=== PATIENT | female | born 1940 | race Caucasian/White ===

== ENCOUNTER 2017-08-03 17:10 | Inpatient (IN) ==
[2017-08-03] MEDS ORDERED: LABETALOL 20 MG/4 ML (5 MG/1 ML) SYRINGE IVP ONE (17:24)
[2017-08-03] MEDS ORDERED: NORMAL SALINE 10 ML SYRINGE FLUSH IVP PRN (17:24)
--- NOTE | 2017-08-03 17:24 | PDOC ---
General Adult HPI - General Chief Complaint: General Medical Stated Complaint: hypertension Date Seen by Provider: 08/03/17 Time Seen by Provider: 17:23 Source: POSITIVE: Patient - History of Present Illness Initial Comment: Judy is a 76 year old woman coming in today with concerns for high blood pressure. She states she feels heart palpitations and anxiety, which she normally feels when her blood pressure is high. She denies chest pain, headache , vision changes, lightheadedness, or syncope. She denies fever or urinary symptoms. She has a known history of high blood pressure. She was recently admitted to this hospital for pneumonia, she was discharged on additional blood pressure medications. She states she is still having a cough, and she already completed all her antibiotics for the pneumonia. Have you received a tetanus shot in the past 10 years?: No - Patient Home Medications Home Medications: Home Medications Metoprolol Succinate [Toprol XL] 25 mg PO DAILY 07/22/15 Aspirin 325 mg PO DAILY 03/26/16 Calcium Carbonate [Calcium] 600 mg PO DAILY 03/26/16 Fluticasone Prop HFA Inhaler [Flovent HFA Inhaler] 1 puff INH DAILY PRN Irbesartan 150 mg PO DAILY 03/26/16 Pirbuterol Acetate [MAXAIR AUTOHALER] 1 puff INH DAILY PRN 03/26/16 Triamterene/Hydrochlorothiazid [Triamterene-Hctz 75-50 mg Tab] 1 ea PO DAILY - Patient Allergies Allergies/Adverse Reactions: Allergies 3 Allergy/AdvReac Type Severity Reaction Status Date / Time No Known Allergies Allergy Verified 08/03/17 17:57 Past Medical History - heen HEENT History: Denies History, Dentures/Partials Cardiovascular History: Hypertension, Arrhythmia Additional Cardiovasular History: [id number] PATTERN Respiratory History: Asthma Gastrointestinal History: Denies History Genitourinary History: Denies History Endocrine History: Denies History Musculoskeletal History: Arthritis Neurological History: Denies History Blood Disorders: Denies History Psychiatric History: Denies History History of Sexually Transmitted Diseases: No Cancer History: Breast Cancer Treatment / Date(s) of Treatment: 2008 History of MDRO: No History of Other Communicable Diseases: No Alcohol Use: Rarely In the Past 12 Months, Have Used or Abuse Any Substance: None Previous Surgical History: Yes Type / Date of Surgery: HYSTERECTOMY, 09 B MASTECTOMY, HEART ABLATION. brow lift Anesthesia Reactions: No Malignant Hyperthermia: No Significant Family History: No pertinent family hx, Asthma, Cancer, COPD, Hypertension Past Medical History Reviewed: Reviewed - No Changes ROS - Limitations ROS Limitations: No Limitations Constitution: REPORTS: Denies Symptoms Cardiovascular: REPORTS: Heart Palpitations Respiratory: REPORTS: Cough Productive Neurological: REPORTS: Denies Neuro Symptoms Gastrointestinal: REPORTS: Denies GI Symptoms Endocrine: REPORTS: Denies Symptoms Musculoskeletal: REPORTS: Denies MS Symptoms Genitourinary: REPORTS: Denies Symptoms Eyes: REPORTS: Denies Symptoms ENT: REPORTS: Denies Symptoms Skin: REPORTS: Denies Skin Symptoms Lympathic: REPORTS: Denies Lympathic Symptoms Immunologic: POSITIVE: Denies Symptoms Psychiatric: POSITIVE: Denies Psych Symptoms General Adult Exam - General Appearance General Appearance: POSITIVE: Alert, Cooperative, Anxious - HEENT HEENT: POSITIVE: Head Inspection Nml, Eyes Inspection Nml, Ears Inspection Nml, Nose Inspection Nml, PERRL, EOMI - Pupils Pupil Size: 3 mm: Bilateral - Neck Neck: POSITIVE: Normal Inspection - Respiratory Respiratory: POSITIVE: No Respiratory Distress, Breath Sounds Normal, Chest Non- Tender - Cardiovascular Cardiovascular: POSITIVE: Regular Rate & Rhythm, No Murmur, No Gallop, Other ( trace edema to bilateal upper extremities, 1+ edema to bilateral lower extremities) Peripheral Pulses: Radial (R): 2+, Radial (L): 2+ - Abdomen Abdomen: Soft: (All Quadrants), Denies Tenderness: (All Quadrants), No Distention: (All Quadrants) - Skin Skin: POSITIVE: Normal Color, Warm, No Rash - Extremities Extremity: Non-Tender: (All Extremities), Normal ROM: (All Extremities), Normal Inspection: (All Extremities) - Neurological / Psychological Neurological: POSITIVE: Affect Apporpriate, Oriented X3, office clin asst Normal As Tested General Adult Progress - Results Reviewed by me Xrays/CTs/US Reviewed by me: Yes Radiology Findings: small pulmonary effusions, central vascular congestion Lab Results Reviewed by Me: Yes CBC and BMP: 08/03/17 17:24 08/03/17 17:24 EKG Interpreted/Reviewed By Me:: Yes (sinus rhythm, no evidence of hypertrophy, no ST segment changes) EKG Interpretation:: POSITIVE: Normal Sinus Rhythm - Patient's Progress MDM / ED Course: Judy is a very nice 76 year old coming in today with acutely elevated blood pressure in the setting of chronic blood pressure, and with new pulmonary congestion with acute hypoxia. She stated that she used to be on diuretics, but was taken off them by her doctor due to problems with her sodium. She was requiring 2L O2 by nasal cannula. I spoke with Dr Galaviz who accepted her for admission for monitoring of her respiratory status and blood pressure. Patient Care Time - Estimated PCT Patient Care Time (In Minutes): 30 Vital Signs - Recent Vital Signs Vital Signs: Vital Signs (Last 8 hours) Temp Pulse Resp BP Pulse Ox 08/03/17 19:08 64 20 192/75 97 08/03/17 18:06 98.4 F 67 20 220/112 92 - VS Reviewed Vital Signs Reviewed: Yes Discharge Clinical Impression: Hypoxia Pulmonary edema Qualifiers: Chronicity: acute Qualified Code(s): J81.0 - Acute pulmonary edema Discharge Disposition: Admit to Inpatient Condition: Fair Follow Up With: VALERIE SOUZA [Primary Care Provider] - Date Decision to Admit to Inpatient: 08/03/17 Time Decision to Admit to Inpatient: 19:21
[2017-08-03] MEDS ORDERED: Sodium Chloride 0.9% 1,000 ML ONE (18:19)
[2017-08-03 18:32] LABS: BASOPHILS # (AUTO) 0.02 10*3/UL; BASOPHILS % (AUTO) 0.3 % (0-1); EOSINOPHILS # (AUTO) 0.12 10*3/UL; EOSINOPHILS % (AUTO) 1.6 % (0-8); Hematocrit [HCT] 45.1 % (37.0-47.0); Hemoglobin [HGB] 14.7 g/dL (12.0-16.0); LYMPHOCYTES # (AUTO) 1.73 10*3/uL; MEAN CORPUSCULAR HEMOGLOBIN 29.6 PG (27-31); MEAN CORPUSCULAR HGB CONC 32.6 g/dL (33-37); MEAN CORPUSCULAR VOLUME 90.9 FL (81-99); MEAN PLATELET VOLUME 10.3 FL (7.4-12.2); MONOCYTES % (AUTO) 9.4 % (5-15); NEUTROPHILS # (AUTO) 4.89 10*3/UL; NEUTROPHILS % (AUTO) 65.4 % (50-80); PLATELET MORPHOLOGY COMMENT NORMAL MORPHOLOGY (NORM); RBC MORPHOLOGY COMMENT NORMAL MORPHOLOGY (NORM); RED BLOOD COUNT 4.96 10^6/uL (4.20-5.40); WBC MORPHOLOGY COMMENT NORMAL MORPHOLOGY (NORM)
--- NOTE | 2017-08-03 18:57 | DI ---
EXAM: XR Chest, 2 Views CLINICAL HISTORY: dyspnea TECHNIQUE: Frontal and lateral views of the chest. COMPARISON: No relevant prior studies available. FINDINGS: Lungs: Pulmonary vascular congestion. No focal pulmonary consolidation. Pleural space: Small bilateral pleural effusions. No pneumothorax. Heart: Unremarkable. No cardiomegaly. Mediastinum: Unremarkable. Bones/joints: Unremarkable. Soft tissues: Surgical clips in the right axilla. Vasculature: Curvilinear calcifications in the aortic arch. IMPRESSION: 1. Pulmonary vascular congestion. 2. Small bilateral pleural effusions.
[2017-08-03 19:06] LABS: BLOOD UREA NITROGEN 13 mg/dL (7-22); BUN/CREATININE RATIO 16.25 (6-20); SERUM ALBUMIN 3.9 g/dL (3.5-4.8)
[2017-08-03] MEDS ORDERED: FUROSEMIDE 10 MG/1 ML - 4 ML IVP ONE (19:20)
[2017-08-03] MEDS ORDERED: POTASSIUM CHLORIDE 20 MEQ TAB PO ONE (20:06)
[2017-08-03] MEDS ORDERED: [UNRECOGNIZED DRUG - OTHER] INH PRN (20:06)
[2017-08-03] MEDS ORDERED: LIDOCAINE W/ SODIUM BICARB 0.5 ML SYR SUBD PRN (20:06)
[2017-08-03] MEDS ORDERED: LIDOCAINE HCL 2 % 10 ML JELLY URO-JECT TOPICAL PRN (20:06)
--- NOTE | 2017-08-03 21:11 | PDOC ---
HPI - History of Present Illness Date of Service: 08/03/17 Time of Service: 21:05 Chief Complaint: High blood pressure and shortness of breath History of Present Illness: This very pleasant 76-year-old female with a past medical history of hypertension, diagnosed congestive heart failure although her most recent echocardiogram showed an ejection fraction of 55-60%, valvular insufficiency ( aortic valve), and history of cough secondary to SHAWN inhibitor. She recently was diagnosed with a community-acquired pneumonia, and required about 3 days of hospitalization and [facility]. She was treated antibiotics consisting of Rocephin and apparently amoxicillin. At the [facility], she developed atrial fibrillation, and it seemed to resolve quite quickly after she was put on sotalol and she was also put on eliquis. At the time, she had hyponatremia and her triamterene/hydrochlorothiazide was discontinued. She noticed after her hospital stay that she started developing persistent cough, she also noticed that her blood pressure was in the 190s today which is unusual for her as it's normally in the 120s on the systolic side. She is having increased lower extremity edema and shortness of breath has been worsening over the past 2 days. She's not had any fevers or chills in fact she states that she had no fevers with her pneumonia. She states that she was negative for influenza at that time. She had been on shawn inhibitors in the past but developed significant cough on lisinopril and had to discontinue that. Her afterload reduction agent therefore has been hydralazine. She was placed on sotalol for rate control as mentioned. She remains on a beta mason. She denied any headaches, or weakness on one side or the other, and in the emergency room with her congestive heart failure she was given Lasix. Her potassium was noted to be low and I have written for some potassium on admission. She's never had anything quite like this before. She's never been hospitalized congestive heart failure. She is not had a stress test and has not had any cardiovascular events such as heart attack or stroke. She has a remote history of [id number] syndrome for which she received an ablation. She is scheduled later this year for a stress test and a Holter monitor study. There were no exacerbating factors with iwona's presentation. She is not sure what was making her cough worse, but chest x-ray was noted to be insistent with bilateral pleural effusions and on my view slightly worse on the left versus the right. No pneumonia was present. Records from [facility] are not available here for viewing tonight. Past Medical History Medical History: 1. Hypertension. 2. History of breast cancer with previous bilateral mastectomies and previous chemotherapy. 3. Asthma, although this was later deemed to be related to an SHAWN inhibitor cough. 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 5. Atrial fibrillation, could be paroxysmal. 6. Aortic insufficiency by echocardiogram in 2016. 7. Recently had community- acquired pneumonia. She states that she got her influenza shot that Rochelle is up-to-date on her Pneumovax and Prevnar shots. Surgical History: 1. Bilateral mastectomies. 2. Hysterectomy. 3. Ablation for WPW syndrome Pertinent Family History: Significant for coronary artery disease in both her mother and father. Past Social History: Remote history of smoking over 30 years ago. . Has healthy children. Lives here in [place], [place], alone. Tobacco Use: Never Smoker In the Past 12 Months, Have Used or Abuse Any of the Following Substance: None Alcohol Use: None Medication / Allergies Home Medications: Home Medications 3 Medication Instructions Recorded Confirmed Type Metoprolol Succinate [Toprol XL] 25 mg PO DAILY 07/22/15 08/03/17 History Fluticasone Prop HFA Inhaler 1 puff INH DAILY PRN 03/26/16 08/03/17 History [Flovent HFA Inhaler] Pirbuterol Acetate [MAXAIR 1 puff INH DAILY PRN 03/26/16 08/03/17 History AUTOHALER] Triamterene/Hydrochlorothiazid 1 ea PO DAILY 03/26/16 08/03/17 History [Triamterene-Hctz 75-50 mg Tab] Apixaban [Eliquis] 5 mg PO 08/03/17 History Docusate Sodium [Colace] PRN 08/03/17 History Hydralazine HCl 25 mg PO BID 08/03/17 08/03/17 History Magnesium 08/03/17 History Potassium Gluconate 550 mg PO BID 08/03/17 08/03/17 History Sotalol HCl [Betapace AF] 80 mg PO BID 08/03/17 08/03/17 History Allergies/Adverse Reactions: Allergies 3 Allergy/AdvReac Type Severity Reaction Status Date / Time lisinopril AdvReac Severe SHORTNESS Verified 08/03/17 21:04 OF BREATH Review of Systems - Review of Systems All Systems: Reviewed & No Additional Complaints Except as Stated (I did a 12 point review systems and other than that discussed in history present illness and that noted below it was negative.) - Respiratory Respiratory: REPORTS: Cough, See HPI - Cardiovascular Cardiovascular: REPORTS: Other (Hypertensive today) - Hematlogic / Lymphatic Hematologic / Lymphatic: REPORTS: Other (History of breast cancer.) - Neurological Neurologic: REPORTS: Other (Had history of neuropathy that resolved post chemotherapy.) Exam - Vitals Vital Signs: Vital Signs Height 5 ft 6 in Weight 163 lb Vital Signs (24 hrs) Temp Pulse Resp BP Pulse Ox 08/03/17 19:08 64 20 192/75 97 08/03/17 18:06 98.4 F 67 20 220/112 92 - General General Appearance: No Acute Distress, Cooperative - Head Head Exam: Normal Inspection, Normocephalic, Atraumatic - Eye Eye Exam: POSITIVE: No Scleral Icterus - ENT ENT Exam: POSITIVE: Mucous Membranes Moist - Neck Neck Exam: Normal Inspection, No Tenderness, No Lymphadenopathy, No Thyromegaly , JVP is not Raised - Respiratory Respiratory Exam: POSITIVE: Breathing Non Labored, Normal to Percussion and Palpation, Decreased Breath Sounds (In the bases bilaterally) - Cardiovascular Cardiovascular Exam: POSITIVE: RRR, No Murmur, No Clicks, No Gallops, No Rubs, No JVD - GI/Abdominal GI/Abdominal Exam: POSITIVE: Normal Bowel Sounds, Non Tender, Non Distended, Soft - Rectal Rectal Exam: POSITIVE: Deferred - External Exam: POSITIVE: Deferred Exam: POSITIVE: Deferred - Extremities Extremities Exam: POSITIVE: No Clubbing Present, No Cyanosis Present, +1 Edema - Back Back Exam: POSITIVE: Normal Inspection, No CVA Tenderness - Neurological Neurological Exam: POSITIVE: Alert, Oriented x 3, No Facial Droop, Speech Intact / Clear, Moves All Extremities Equally - Psychiatric Psychiatric Exam: POSITIVE: Normal Affect, Normal Mood - Central Line Examination Central Line Present on Admission: No Results - Labs CBC and BMP: 08/03/17 17:24 08/03/17 17:24 Additional Lab Results: Laboratory Results 08/03/17 08/03/17 08/03/17 Range/Units 17:24 17:24 17:24 WBC 7.47 (4.8-10.8) 10^3/uL RBC 4.96 (4.20-5.40) 10^6/uL Hgb 14.7 (12.0-16.0) g/dL Hct 45.1 (37.0-47.0) % MCV 90.9 (81-99) FL MCH 29.6 (27-31) PG MCHC 32.6 L (33-37) g/dL RDW Std Deviation 48.6 (39-50) fL RDW Coeff of [place] 15.0 H (11.5-14.5) % Plt Count 214 (140-350) 10*3/uL MPV 10.3 (7.4-12.2) FL Immature Gran % (Auto) 0.1 (0-5) % Neut % (Auto) 65.4 (50-80) % Lymph % (Auto) 23.2 (10-50) % [place] % (Auto) 9.4 (5-15) % Eos % (Auto) 1.6 (0-8) % Baso % (Auto) 0.3 (0-1) % Immature Gran # (Auto) 0.01 10*3/UL Neut # (Auto) 4.89 10*3/UL Lymph # (Auto) 1.73 10*3/uL [place] # (Auto) 0.70 (0.3-0.8) 10*3/UL Eos # (Auto) 0.12 10*3/UL Baso # (Auto) 0.02 10*3/UL WBC Morphology Comment Normal morphology (NORM) Plt Morphology Comment Normal morphology (NORM) RBC Morph Comment Normal morphology (NORM) Sodium 139 (135-145) meq/L Potassium 3.4 L (3.8-5.2) meq/L Chloride 102 (98-112) meq/L Carbon Dioxide 27 (23-33) meq/L Anion Gap 10 (5-20) BUN 13 (7-22) mg/dL Creatinine 0.8 (0.50-1.20) mg/dL BUN/Creatinine Ratio 16.25 (6-20) Glucose 108 (78-110) mg/dL Calculated Osmolality 288.0 (267-292) mOsm/kg Calcium 9.0 (8.7-10.7) mg/dL Total Bilirubin 0.7 (0.3-1.2) mg/dL AST 38 (8-39) IU/L ALT 57 H (9-52) IU/L Alkaline Phosphatase 84 (38-126) IU/L Troponin I < 0.012 (< 0.040) ng/mL Total Protein 6.4 (6.1-8.0) g/dL Albumin 3.9 (3.5-4.8) g/dL Globulin 2.4 L (2.50-4.10) g/dL Albumin/Globulin Ratio 1.60 (1.3-2.0) mg/g - Imaging Status: Image Reviewed by Me (Chest x-ray, on my view, looks hyperexpanded consistent with probable COPD, and in addition has bilateral pleural effusions, left greater than right.) AFib Stroke Risk Screening - AFib Stroke Risk (CHADS-VASc) Atrial Fibrillation Ischemic Stroke Risk Factors: Congestive Heart Failure (She is already on eliquis), Female, Age 75 years or older CHADS-VASc Score (A-Fib Stroke Risk Score): 4 CHADS-VASc Risk: High Risk Assessment and Plan - Patient Problems (1) Congestive heart failure Current Visit: Yes Status: Acute Code(s): I50.9 - Heart failure, unspecified Qualifiers: Congestive heart failure type: unspecified congestive heart failure type Congestive heart failure chronicity: acute Qualified Code(s): I50.9 - Heart failure, unspecified (2) Atrial fibrillation Current Visit: Yes Status: Acute Code(s): I48.91 - Unspecified atrial fibrillation Qualifiers: Atrial fibrillation type: paroxysmal Qualified Code(s): I48.0 - Paroxysmal atrial fibrillation (3) Hypertension Current Visit: Yes Status: Acute Code(s): I10 - Essential (primary) hypertension Qualifiers: Hypertension type: essential hypertension Qualified Code(s): I10 - Essential (primary) hypertension (4) Aortic insufficiency Current Visit: Yes Status: Acute Code(s): I35.1 - Nonrheumatic aortic (valve ) insufficiency Qualifiers: Cardiac valve disease etiology: etiology unspecified Qualified Code(s): I35.1 - Nonrheumatic aortic (valve) insufficiency (5) Hypokalemia Current Visit: No Status: Acute Code(s): E87.6 - Hypokalemia (6) History of breast cancer Current Visit: Yes Status: Resolved Code(s): Z85.3 - Personal history of malignant neoplasm of breast - Assessment / Plan Additional Assessment/Plan Details: Admit the patient. I will use Lasix for diuresis. Due to SHAWN inhibitor adverse reaction with cough, I will hold off on SHAWN inhibitor or angiotensin receptor mason, continue hydralazine. May increase the dose to help with blood pressure. Overall, I think that she'll do better when she has less fluid on her. Replace potassium. As the patient had a recent echocardiogram, we'll try to get the results from her chamber worker's office. I will discuss with cardiology tomorrow regarding timing of stress test. Monitor with telemetry here. Patient is full code, discussed with her and her family. Continue beta mason and sotalol. I like to get information on where this pneumonia was. If on the left side or the right side, we may need to consider sampling the fluid to make sure it's not a parapneumonic effusion although I doubt that with pneumonia clearing already on chest x-ray. This looks more consistent with congestive heart failure. Discussed with patient and her family at bedside. They agreed with the plan.
--- NOTE | 2017-08-03 21:15 | EKG ---
[address] [place] [address] Measurements Intervals [place] Rate: 65 P: 66 LA: 172 QRS: 59 QRSD: 84 T: 60 QT: 462 QTc: 473 Interpretive Statements SINUS RHYTHM POSSIBLE ANTERIOR MYOCARDIAL INFARCTION [30 ms Q WAVE IN V3/V4, OR R < 0.2 mV IN V4], OF INDETERMINATE AGE Compared to ECG 03/26/2016 15:05:54 ST (T wave) deviation no longer present Prolonged QT interval no longer present Myocardial infarct finding still present Electronically Signed On 08-04-17 07:57:10 MST by Dhruv Magaña MD [email or web address]
[2017-08-03] MEDS: FUROSEMIDE 10 MG/1 ML - 4 ML IVP SCH (21:36)
[2017-08-03] MEDS: NORMAL SALINE 10 ML SYRINGE FLUSH IVP PRN (21:36)
[2017-08-04] MEDS: POTASSIUM CHLORIDE 20 MEQ TAB PO SCH ×3 (00:09→20:10)
[2017-08-04] MEDS: FLUTICASONE HFA 110 MCG - 12 GM INHALER INH PRN (07:08)
[2017-08-04] MEDS: ASPIRIN 325 MG TABLET PO SCH (08:10)
[2017-08-04] MEDS: METOPROLOL SUCCINATE 25 MG SR 24H TABLET PO SCH (08:10)
[2017-08-04] MEDS: Sotalol Tab 80 MG TAB PO SCH ×2 (08:10→20:10)
[2017-08-04] MEDS: Apixaban 5 MG TABLET PO SCH ×2 (08:10→20:10)
[2017-08-04] MEDS: FUROSEMIDE 10 MG/1 ML - 4 ML IVP SCH ×2 (08:11→20:10)
[2017-08-04] MEDS: NORMAL SALINE 10 ML SYRINGE FLUSH IVP PRN (08:11)
[2017-08-04] MEDS ORDERED: ENOXAPARIN SODIUM 40 MG/0.4 ML SYRINGE SUBCUT SCH (09:00)
[2017-08-04] MEDS ORDERED: IRBESARTAN 150 MG PO SCH (09:00)
[2017-08-04] MEDS ORDERED: CALCIUM CARBONATE 500 MG (TUMS) CHEWABLE TABLET PO SCH (09:00)
[2017-08-04 10:10] LABS: BLOOD UREA NITROGEN 13 mg/dL (7-22); BUN/CREATININE RATIO 14.44 (6-20)
--- NOTE | 2017-08-04 15:56 | PDOC(PROG) ---
Date and Time of Service: 08/04/2017, 1550 Interval History: no chest pain SOB is improved cough persistent, and clear phlegm Objective : Data - Labs CBC and BMP: 08/03/17 17:24 08/04/17 05:20 Additional Lab Results: 08/04/17 05:20 Magnesium 1.8 Objective : Exam - General General Appearance: No Acute Distress, Cooperative Additional General Exam Details: Vital Signs (24 hrs) Temp Pulse Pulse Pulse Resp BP Pulse Ox 08/04/17 11:11 97 F 57 L 20 167/65 94 08/04/17 11:00 57 L 08/04/17 07:25 97.8 F 68 22 181/65 94 08/04/17 07:00 57 L 08/04/17 05:45 95 08/04/17 05:00 97.6 F 64 20 167/60 95 08/04/17 03:00 54 L 08/04/17 00:32 98.4 F 62 22 162/70 92 08/03/17 23:00 59 L 08/03/17 21:00 97.2 F 65 22 183/83 95 08/03/17 19:08 64 20 192/75 97 08/03/17 18:06 98.4 F 67 20 220/112 92 Intake and Output (24hr x 4 totals) 08/02/17 08/03/17 08/04/17 08/05/17 05:59 05:59 05:59 05:59 Intake Total 400 / 400 360 / 360 Output Total 3800 / 3800 1900 / 1900 Balance -3400 / -3400 -1540 / -1540 - ENT ENT Exam: Mucous Membranes Moist - Neck Neck Exam: JVP is not Raised - Respiratory Respiratory Exam: Breathing Non Labored, Decreased Breath Sounds (in bases) - Cardiovascular Cardiovascular Exam: RRR, No Murmur, No Clicks, No Gallops, No Rubs, No JVD - GI/Abdominal GI/Abdominal Exam: Normal Bowel Sounds, Non Tender, Non Distended, Soft - Extremities Extremities Exam: No Clubbing Present, No Edema Present, No Cyanosis Present - Neurological Neurological Exam: Alert, Oriented x 3, No Facial Droop, Speech Intact / Clear, Moves All Extremities Equally Assessment and Plan - Patient Problems (1) Congestive heart failure Current Visit: Yes Status: Acute Code(s): I50.9 - Heart failure, unspecified Qualifiers: Congestive heart failure type: unspecified congestive heart failure type Congestive heart failure chronicity: acute Qualified Code(s): I50.9 - Heart failure, unspecified (2) Atrial fibrillation Current Visit: Yes Status: Acute Code(s): I48.91 - Unspecified atrial fibrillation Qualifiers: Atrial fibrillation type: paroxysmal Qualified Code(s): I48.0 - Paroxysmal atrial fibrillation (3) Hypertension Current Visit: Yes Status: Acute Code(s): I10 - Essential (primary) hypertension Qualifiers: Hypertension type: essential hypertension Qualified Code(s): I10 - Essential (primary) hypertension (4) Aortic insufficiency Current Visit: Yes Status: Acute Code(s): I35.1 - Nonrheumatic aortic (valve ) insufficiency Qualifiers: Cardiac valve disease etiology: etiology unspecified Qualified Code(s): I35.1 - Nonrheumatic aortic (valve) insufficiency (5) Hypokalemia Current Visit: No Status: Acute Code(s): E87.6 - Hypokalemia (6) History of breast cancer Current Visit: Yes Status: Resolved Code(s): Z85.3 - Personal history of malignant neoplasm of breast - Assessment / Plan Additional Assessment/Plan Details: potassium today lasix IV one more day, likely to PO dosing tomorrow recheck CXR to look at effusions tomorrow I discussed with cardiology, they recommended proceeding with stress test here and then holter monitor as an outpatient got ECHO recently done, Ejection fraction 55-60%, mild aortic regurgitation start Bonnie scan stress test today. patient/son, in agreement with the plan. the CT scan from [facility] on the lungs showed a reticular infiltrate. all resolved on CXR now. highly doubt parapneumonic effusion and reviewed with radiology--both are too small to tap.
[2017-08-05 05:24] LABS: BLOOD UREA NITROGEN 17 mg/dL (7-22); BUN/CREATININE RATIO 18.88 (6-20)
[2017-08-05] MEDS: FLUTICASONE HFA 110 MCG - 12 GM INHALER INH PRN (06:46)
[2017-08-05] MEDS ORDERED: POTASSIUM CHLORIDE 20 MEQ TAB PO ONE (06:50)
[2017-08-05] MEDS ORDERED: FUROSEMIDE 20 MG TABLET PO SCH ×2 (07:00→13:00)
[2017-08-05] MEDS: POTASSIUM CHLORIDE 20 MEQ TAB PO SCH ×2 (08:08→21:11)
[2017-08-05] MEDS: FUROSEMIDE 20 MG TABLET PO SCH ×2 (08:25→13:35)
[2017-08-05] MEDS: Apixaban 5 MG TABLET PO SCH ×2 (08:25→21:11)
[2017-08-05] MEDS: ASPIRIN 325 MG TABLET PO SCH (08:26)
--- NOTE | 2017-08-05 10:46 | STRESSTEST ---
[facility] Interpretive Statements This is a 76 YO female recently diagnosed with pneumonia and Afib, paroxysmal, who presented here with SOB and CHF. Has HTN normally, no DMII,+ family history, no cholesterol, resing EKG sinus annika cardia. Tested with Bonnie scan stress test protocol. Had SOB, arm tingling, stomach pain. reversing with caffeine. Plan: review images, radiology to read. [email or web address]
[2017-08-05] MEDS ORDERED: ONDANSETRON 4 MG/2 ML VIAL IVP PRN (11:02)
[2017-08-05] MEDS: Sotalol Tab 80 MG TAB PO SCH ×2 (13:35→21:11)
[2017-08-05] MEDS: METOPROLOL SUCCINATE 25 MG SR 24H TABLET PO SCH (13:36)
[2017-08-05 14:38] LABS: BLOOD UREA NITROGEN 20 mg/dL (7-22)
[2017-08-05 16:13] VITALS: RESP 18
--- NOTE | 2017-08-05 17:18 | DI ---
2 DAY LEXISCAN STRESS & REST MYOCARDIAL PERFUSION SCANS, 08/04/2017 11:50 AM : Clinical History: Congestive heart failure. Previous Exam: None at this facility. The patient was stressed by Dr. Curly Gilliam The standard Lexiscan protocol was used. Please see the Doctor's report. At the designated time, 37.4 mCi of 99Tc-sestimibi was injected IV. Stress gated tomograms were acquired within one hour of the i njection. For the resting scans, 35.5 mCi was injected IV and resting gated tomograms were acquired in similar fashion. Stress scans were performed on August 04, 2017; the resting scans were performed on August 05, 2017. Quantitative and qualitative analyses were performed. Quantitative analysis was performed with the [place] [facility] - [facility] [id number] protocols. Very low dose limited CT scans of the chest are o btained through the level of the heart for attenuation correction of the gated stress and rest cardia c SPECT data. Non-attenuated and attenuated scans were processed for review, and the attenuated scans were used for final interpretation of this study. Review of the raw data images and supplier quality engineer files indicate that these series of examinations ar e of good quality with 97% accepted beats. Stress and rest left ventricular chamber sizes are normal. Stress and rest LVEF are 65 % and 59 %, r espectively. There is a medium sized mild intensity reversible defect involving the lateral wall involving the mi d slices at the base. There is a fixed defect within the anterior apex. There is some mild hypokinesis. Transient ischemic dilatation ratio is 0.94, with a normal range up to 1.22 for patients str essed with the Bud protocol and up to 1.33 for patients stressed with the Lexiscan protocol. The very low dose CT scans through the level of the heart demonstrate a small pericardial effusion. T here are bilateral pleural effusions identified. There are are no definite coronary artery calcificat ions seen. Peripheral vascular calcifications are seen within the aorta. There is mild cardiomegaly. There is no adenopathy or evidence of lung nodules. Reading: Medium sized mild intensity reversibility involving the lateral wall involving the mid slices in the base. This is most consistent with disease in the left circumflex artery. Mild hypokinesis with Ejection fractions that are within normal limits.
--- NOTE | 2017-08-05 18:01 | DI ---
XR CXR 2VW PA/LAT,08/05/2017 7:00 AM: Clinical History: Congestive heart failure. Previous Exam: August 03, 2017 Findings: PA and lateral views of the chest are obtained, and demonstrate a small left pleural effusion. The lungs are otherwise clear. The cardiomediastinum demonstrates an improved appearance from the parviz or exam. Degenerative changes are noted involving the acromioclavicular joints bilaterally. Impression: Small left pleural effusion with improvement in the cardiomegaly.
--- NOTE | 2017-08-05 20:01 | PDOC(PROG) ---
Date and Time of Service: 08/05/20171956 Interval History: No complaints of chest pain, shortness is breath is better. No nausea or vomiting. Electrolytes were somewhat low so we actually did stop IV Lasix, went to by mouth Lasix and replace electrolytes which are significantly better this afternoon. We did complete stress test today, this was a Lexiscan and she had some shortness of breath that happened with the ragadenosine derivative, and I suspect that the patient has asthma which she confirmed. She is on Flovent for this. We also discussed stress test results which came back positive for possible circumflex artery distribution reversibility. I spoke with her snaker tractor driver, Dr. Caro, and we will proceed with arrangements for an outpatient cardiac catheterization next week and their office will call the patient. Objective : Data - Labs CBC and BMP: 08/03/17 17:24 08/05/17 14:09 - Imaging X-Ray Status: Image Reviewed by Me (Chest x-ray, on my view, shows almost complete resolution of right pleural effusion and left pleural effusion is significantly improved.) Nuclear Med Status: Report Reviewed by Me (I reviewed the nuclear medicine report there is a left circumflex artery distribution reversibility to suggest coronary artery disease there, there may also be a small pericardial effusion.) Objective : Exam - General General Appearance: No Acute Distress, Cooperative Additional General Exam Details: Vital Signs (24 hrs) Temp Pulse Pulse Pulse Resp BP Pulse Ox 08/05/17 16:12 97.5 F 62 18 145/61 95 08/05/17 15:00 62 08/05/17 13:32 64 20 140/56 97 08/05/17 11:04 97 F 75 20 136/67 94 08/05/17 11:00 72 08/05/17 07:44 97.1 F 62 20 148/56 93 08/05/17 07:00 52 L 08/05/17 04:30 97 08/05/17 04:28 97.8 F 59 L 155/58 97 08/05/17 02:56 53 L 08/05/17 01:00 97.4 F 62 20 154/58 95 08/04/17 23:00 62 08/04/17 20:43 97.2 F 60 20 160/51 94 - Eye Eye Exam: No Scleral Icterus - ENT ENT Exam: Mucous Membranes Moist - Neck Neck Exam: JVP is not Raised - Respiratory Respiratory Exam: Clear to Auscultation - Bilaterally, Breathing Non Labored - Cardiovascular Cardiovascular Exam: RRR, No Murmur, No Clicks, No Gallops, No Rubs, No JVD - GI/Abdominal GI/Abdominal Exam: Normal Bowel Sounds, Non Tender, Non Distended, Soft - Extremities Extremities Exam: No Clubbing Present, No Edema Present, No Cyanosis Present - Neurological Neurological Exam: Alert, Oriented x 3, No Facial Droop, Speech Intact / Clear, Moves All Extremities Equally - Psychiatric Psychiatric Exam: Normal Affect, Normal Mood Assessment and Plan - Patient Problems (1) Congestive heart failure Current Visit: Yes Status: Acute Code(s): I50.9 - Heart failure, unspecified Qualifiers: Congestive heart failure type: unspecified congestive heart failure type Congestive heart failure chronicity: acute on chronic Qualified Code(s): I50.9 - Heart failure, unspecified (2) Atrial fibrillation Current Visit: Yes Status: Acute Code(s): I48.91 - Unspecified atrial fibrillation Qualifiers: Atrial fibrillation type: paroxysmal Qualified Code(s): I48.0 - Paroxysmal atrial fibrillation (3) Hypertension Current Visit: Yes Status: Acute Code(s): I10 - Essential (primary) hypertension Qualifiers: Hypertension type: essential hypertension Qualified Code(s): I10 - Essential (primary) hypertension (4) Aortic insufficiency Current Visit: Yes Status: Acute Code(s): I35.1 - Nonrheumatic aortic (valve ) insufficiency Qualifiers: Cardiac valve disease etiology: etiology unspecified Qualified Code(s): I35.1 - Nonrheumatic aortic (valve) insufficiency (5) Hypokalemia Current Visit: No Status: Acute Code(s): E87.6 - Hypokalemia (6) History of breast cancer Current Visit: Yes Status: Resolved Code(s): Z85.3 - Personal history of malignant neoplasm of breast - Assessment / Plan Additional Assessment/Plan Details: At this point, switch to by mouth Lasix. Replace electrolytes. Check electrolytes again in a.m. I think the patient will need to be on by mouth Lasix, and may even require oxygen as an outpatient. We will see what the patient looks like tomorrow. Patient is down approximately 3 pounds or so. Given the positive findings of the stress test, again we arranged with her snaker tractor driver to visit in the office and then possibly arrange an outpatient heart catheterization next Friday or Friday. Dr. Caro's office will call the patient directly and arrange the appointment. She may need outpatient Holter monitor for her atrial fibrillation workup as well. Plan discussed with patient, her son, and her grandson and questions were answered and they are all in agreement with the plan.
[2017-08-06] MEDS: FLUTICASONE HFA 110 MCG - 12 GM INHALER INH PRN (07:47)
[2017-08-06] MEDS: FUROSEMIDE 20 MG TABLET PO SCH (08:03)
[2017-08-06] MEDS: POTASSIUM CHLORIDE 20 MEQ TAB PO SCH (09:21)
[2017-08-06] MEDS: Sotalol Tab 80 MG TAB PO SCH (09:22)
[2017-08-06] MEDS: Apixaban 5 MG TABLET PO SCH (09:22)
[2017-08-06] MEDS: METOPROLOL SUCCINATE 25 MG SR 24H TABLET PO SCH (09:22)
[2017-08-06] MEDS: ASPIRIN 325 MG TABLET PO SCH (09:23)
--- NOTE | 2017-08-06 10:51 | DCSUMMARY ---
Hospitalization Summary Admit Date: 08/03/2017 Discharge Date: 08/06/17 Primary Diagnosis:: congestive heart failure, acute on chronic, mixed type Secondary Diagnosis:: Coronary artery disease, positive stress test for left circumflex artery distribution. Hospital Course: This very pleasant 76 year old female that came in with shortness of breath, hypoxia, and signs and symptoms consistent with congestive heart failure. This acted like possible right-sided heart failure diastolic congestive heart failure with bilateral pleural effusions and lower extremity edema. Her ejection fraction has been 55-60% on recent echocardiograms which we were able to obtain from her corrective therapist's office. The patient has an allergy to enalapril/adverse reaction to enalapril with significant cough, so she is on hydralazine for afterload reduction agent and she is on a beta mason. We started Lasix, diuresed the patient fairly aggressively and took off over 5 L and she lost a little over 3 pounds. Her hypoxia resolved. She is on room air were better at the time of discharge. Even with activity she does not desaturate. We did do a stress test as she had had recent paroxysmal atrial fibrillation, and she has a positive stress test in the left circumflex artery distribution. She did not have any evidence of heart attack here. She does not have any chest pain. I spoke with her corrective therapist and we arrange for their office to contact her for an outpatient cardiac catheterization. They will likely have that take place next Friday or Friday. Because of the paroxysmal atrial fibrillation, we did monitor her and we did not notice any evidence of atrial fibrillation here, but we will do a Holter monitor as an outpatient as well. I have written a prescription for that. I am having the patient reduce her aspirin to 81 mg that she is on eliquis for stroke prophylaxis/prevention in the setting of atrial fibrillation. Her pneumonia had completely resolved. There are significant improvements in her effusions during the hospital stay here. On the date of discharge, the patient had no complaints of chest pain, shortness breath, nausea or vomiting. She was ready to go home. We will provide CHF education prior to discharge. Assessment and Plan: 1. As per discharge assessments noted 2. Disposition: Patient is discharged home. 3. Condition on discharge, stable and improved. 4. Diet: regular diet 5. Activities: resume normal activities 6. Follow-Up: 1. Dr. Meza on 08/11/[address] Caro's office will call the patient to arrange heart catheterization 7. Medications at the Time of Discharge: Home Medications 3 Medication Instructions Recorded Confirmed Type Metoprolol Succinate [Toprol XL] 25 mg PO DAILY 07/22/15 08/03/17 History Fluticasone Prop HFA Inhaler 1 puff INH DAILY PRN 03/26/16 08/03/17 History [Flovent HFA Inhaler] Pirbuterol Acetate [MAXAIR 1 puff INH DAILY PRN 03/26/16 08/03/17 History AUTOHALER] Apixaban [Eliquis] 5 mg PO BID 08/03/17 08/04/17 History Docusate Sodium [Colace] 100 mg PO BID 08/03/17 History Hydralazine HCl 25 mg PO BID 08/03/17 08/03/17 History Magnesium 250 mg PO DAILY 08/03/17 08/04/17 History Sotalol HCl [Betapace AF] 80 mg PO BID 08/03/17 08/03/17 History Aspirin [Aspir 81] 81 mg PO DAILY #90 tablet. 08/06/17 Rx Furosemide [Lasix] 20 mg PO BID@0700,1300 #60 tab 08/06/17 Rx Potassium Chloride [Klor-Con] 20 meq PO BID #60 tab 08/06/17 Rx 8. Time, care, counseling and coordination of care for this discharge is greater than 30 minutes. Exam - Vitals Vital Signs: Vital Signs Temperature 97 F Temperature Source Temporal Artery Scan Pulse Rate [Apical] 64 Pulse Rate [Pulse Oximeter] 61 Pulse Rate [Pulse Oximeter 64 Bilateral Radial] Pulse Rate 58 Respiratory Rate 18 Blood Pressure [Left Arm] 135/54 Pulse Ox 94 Oxygen Flow Rate 1.5 Oxygen Delivery Method Nasal Cannula Height 5 ft 6 in Weight 158 lb 9.6 oz Data Peritnent Studies: 08/03/17 08/03/17 08/03/17 17:24 17:24 17:24 WBC 7.47 Hgb 14.7 MCV 90.9 Plt Count 214 Sodium Potassium Chloride Carbon Dioxide Anion Gap BUN Creatinine BUN/Creatinine Ratio Glucose Calculated Osmolality Calcium Magnesium Total Bilirubin 0.7 AST 38 ALT 57 H Alkaline Phosphatase 84 Troponin I < 0.012 NT-Pro-B Natriuret Pep Total Protein 6.4 Albumin 3.9 Globulin 2.4 L 08/04/17 08/05/17 08/05/17 05:20 04:25 14:09 WBC Hgb MCV Plt Count Sodium 134 L Potassium 3.9 Chloride 93 L Carbon Dioxide 29 Anion Gap 12 BUN 20 Creatinine 1.0 BUN/Creatinine Ratio 20.00 Glucose 137 H Calculated Osmolality 282.0 Calcium 8.8 Magnesium 1.7 Total Bilirubin AST ALT Alkaline Phosphatase Troponin I NT-Pro-B Natriuret Pep 8020 H 2890 H Total Protein Albumin Globulin [address] [facility]. [facility] [place] [address] PH: DD: [phone] FAX: [phone] ~DIAGNOSTIC IMAGING REPORT~ Patient: Judy Goyal : 1940 Sex: F Age: 76 Exam Name: XR CXR 2VW PA/LAT Exam Date: 08/05/17 Report # : [id number] CPT Code: 03524 EMR/MR #: [id number] Ordering: LIANNE JIMÉNEZ Admiting: LIANNE JIMÉNEZ DO Primary: VALERIE MEZA MD. Attending: LIANNE JIMÉNEZ DO Signed XR CXR 2VW PA/LAT,08/05/2017 7:00 AM: Clinical History: Congestive heart failure. Previous Exam: August 03, 2017 Findings: PA and lateral views of the chest are obtained, and demonstrate a small left pleural effusion. The lungs are otherwise clear. The cardiomediastinum demonstrates an improved appearance from the prior exam. Degenerative changes are noted involving the acromioclavicular joints bilaterally. Impression: Small left pleural effusion with improvement in the cardiomegaly. Dictated By: 08/05/17 1752 DAYSI GILLETTE MD. Signed By: 08/05/17 1802 DAYSI GILLETTE MD. [address] [facility] [place] [address] PH: DD: [phone] FAX: [phone] ~DIAGNOSTIC IMAGING REPORT~ Patient: Judy Goyal : 1940 Sex: F Age: 76 Exam Name: NM Myocardial Multi-Spect Exam Date: 08/04/17 Report # : [id number] CPT Code: 84868 EMR/MR #: [id number] Ordering: LIANNE JIMÉNEZ Admiting: LIANNE JIMÉNEZ DO Primary: VALERIE MEZA MD. Attending: LIANNE JIMÉNEZ DO Signed 2 DAY LEXISCAN STRESS & REST MYOCARDIAL PERFUSION SCANS, 08/04/2017 11:50 AM : Clinical History: Congestive heart failure. Previous Exam: None at this facility. The patient was stressed by Dr. Lianne Jiménez The standard Lexiscan protocol was used. Please see the Doctor's report. At the designated time, 37.4 mCi of 99Tc-sestimibi was injected IV. Stress gated tomograms were acquired within one hour of the injection. For the resting scans, 35.5 mCi was injected IV and resting gated tomograms were acquired in similar fashion. Stress scans were performed on August 04, 2017; the resting scans were performed on August 05, 2017. Quantitative and qualitative analyses were performed. Quantitative analysis was performed with the INV[facility] - [facility] [id number] protocols. Very low dose limited CT scans of the chest are obtained through the level of the heart for attenuation correction of the gated stress and rest cardiac SPECT data. Non-attenuated and attenuated scans were processed for review, and the attenuated scans were used for final interpretation of this study. Review of the raw data images and quality control auditor files indicate that these series of examinations are of good quality with 97% accepted beats. Stress and rest left ventricular chamber sizes are normal. Stress and rest LVEF are 65 % and 59 %, respectively. There is a medium sized mild intensity reversible defect involving the lateral wall involving the mid slices at the base. There is a fixed defect within the anterior apex. There is some mild hypokinesis. Transient ischemic dilatation ratio is 0.94, with a normal range up to 1.22 for patients stressed with the Bud protocol and up to 1.33 for patients stressed with the Lexiscan protocol. The very low dose CT scans through the level of the heart demonstrate a small pericardial effusion. There are bilateral pleural effusions identified. There are are no definite coronary artery calcifications seen. Peripheral vascular calcifications are seen within the aorta. There is mild cardiomegaly. There is no adenopathy or evidence of lung nodules. Reading: Medium sized mild intensity reversibility involving the lateral wall involving the mid slices in the base. This is most consistent with disease in the left circumflex artery. Mild hypokinesis with Ejection fractions that are within normal limits. Dictated By: 08/05/17 1614 DAYSI GILLETTE MD. Patient Problems - Patient Problem List (1) Congestive heart failure Current Visit: Yes Status: Acute Code(s): I50.9 - Heart failure, unspecified Qualifiers: Congestive heart failure type: unspecified congestive heart failure type Congestive heart failure chronicity: acute on chronic Qualified Code(s): I50.9 - Heart failure, unspecified Category: Medical (2) Coronary artery disease Current Visit: Yes Status: Acute Code(s): I25.10 - Atherosclerotic heart disease of [place] coronary artery without angina pectoris Qualifiers: Coronary Disease-Associated Artery/Lesion type: [place] artery [place] vs. transplanted heart: [place] heart Associated angina: without angina Qualified Code(s): I25.10 - Atherosclerotic heart disease of [place] coronary artery without angina pectoris Category: Medical (3) Atrial fibrillation Current Visit: Yes Status: Acute Code(s): I48.91 - Unspecified atrial fibrillation Qualifiers: Atrial fibrillation type: paroxysmal Qualified Code(s): I48.0 - Paroxysmal atrial fibrillation Category: Medical (4) Hypertension Current Visit: Yes Status: Acute Code(s): I10 - Essential (primary) hypertension Qualifiers: Hypertension type: essential hypertension Qualified Code(s): I10 - Essential (primary) hypertension Category: Medical (5) Aortic insufficiency Current Visit: Yes Status: Acute Code(s): I35.1 - Nonrheumatic aortic (valve ) insufficiency Qualifiers: Cardiac valve disease etiology: etiology unspecified Qualified Code(s): I35.1 - Nonrheumatic aortic (valve) insufficiency Category: Medical (6) Hypokalemia Current Visit: Yes Status: Resolved Code(s): E87.6 - Hypokalemia Category : Medical (7) History of breast cancer Current Visit: Yes Status: Resolved Code(s): Z85.3 - Personal history of malignant neoplasm of breast Category: Medical (8) Asthma Current Visit: Yes Status: Chronic Code(s): J45.909 - Unspecified asthma, uncomplicated Qualifiers: Asthma severity: mild Asthma persistence: intermittent Asthma complication type: uncomplicated Qualified Code(s): J45.20 - Mild intermittent asthma, uncomplicated Category: Medical
[2017-08-06 11:40] VITALS: BP 128/48; TEMP 98.2; O2SAT 92
== END 2017-08-06 13:00 | disposition home or self-care (01) | DRG 305 ==
LOC: ER 17:10 → MED/SURG 19:24
PROVIDERS: ADMIT Family Medicine; ATTEND Family Medicine